=== PATIENT | male | born 1935 | race American Indian/Alaskan Native ===

== ENCOUNTER 2018-06-14 12:12 | Emergency (ER) | payer MEDICARE ==
--- NOTE | 2018-06-14 13:25 | Emergency Department Report ---
ED Psych HPI - General Chief Complaint: Psych Stated Complaint: ALZHEIMERS Time Seen by Provider: 06/14/18 13:24 Source: EMS Mode of arrival: Stretcher - History of Present Illness Initial Comments: Patient is an 82-year-old male past medical history of Alzheimer's disease who presents with aggressive behavior. History is limited due to patient not wanting to communicate and dementia. Per EMS patient be his at home. Patient keeps on saying people or screaming at him and he doesn't like that. - Related Data Allergies Allergy/AdvReac Type Severity Reaction Status Date / Time No Known Allergies Allergy Unverified 06/14/18 12:48 ED Review of Systems ROS: Stated complaint: ALZHEIMERS Other details as noted in HPI Comment: Unobtainable due to pts medical conditions (dementia) ED Past Medical Hx - Past Medical History Additional medical history: alzhiemer's - Social History Smoking Status: Unknown if ever smoked ED Physical Exam - General Limitations: Altered Mental Status General appearance: alert - Head Head exam: Present: atraumatic, normocephalic - Eye Eye exam: Present: normal appearance - ENT ENT exam: Present: mucous membranes moist - Neck Neck exam: Present: normal inspection - Respiratory Respiratory exam: Present: normal lung sounds bilaterally. Absent: respiratory distress - Cardiovascular Cardiovascular Exam: Present: regular rate, normal rhythm. Absent: systolic murmur, diastolic murmur, rubs, gallop - GI/Abdominal GI/Abdominal exam: Present: soft, normal bowel sounds - Rectal Rectal exam: Present: deferred - Extremities Exam Extremities exam: Present: normal inspection - Back Exam Back exam: Present: normal inspection - Neurological Exam Neurological exam: Present: altered - Psychiatric Psychiatric exam: Present: agitated, homicidal ideation - Skin Skin exam: Present: warm, dry, intact, normal color. Absent: rash ED Course Vital Signs 06/14/18 14:34 Respiratory 16 Rate ED Medical Decision Making - Lab Data Result diagrams: 06/14/18 13:52 06/14/18 13:52 Lab Results 06/14/18 06/14/18 06/14/18 Range/Units 13:52 13:52 13:52 WBC 5.3 (4.5-11.0) K/mm3 RBC 4.32 (3.65-5.03) M/mm3 Hgb 13.7 (11.8-15.2) gm/dl Hct 41.7 (35.5-45.6) % MCV 97 H (84-94) fl MCH 32 (28-32) pg MCHC 33 (32-34) % RDW 14.5 (13.2-15.2) % Plt Count 290 (140-440) K/mm3 Lymph % (Auto) 31.8 (13.4-35.0) % [place] % (Auto) 13.0 H (0.0-7.3) % Eos % (Auto) 1.5 (0.0-4.3) % Baso % (Auto) 0.7 (0.0-1.8) % Lymph # 1.7 (1.2-5.4) K/mm3 [place] # 0.7 (0.0-0.8) K/mm3 Eos # 0.1 (0.0-0.4) K/mm3 Baso # 0.0 (0.0-0.1) K/mm3 Seg Neutrophils % 53.0 (40.0-70.0) % Seg Neutrophils # 2.8 (1.8-7.7) K/mm3 Sodium 138 (137-145) mmol/L Potassium 3.9 (3.6-5.0) mmol/L Chloride 97.2 L (98-107) mmol/L Carbon Dioxide 27 (22-30) mmol/L Anion Gap 18 mmol/L BUN 8 L (9-20) mg/dL Creatinine 0.8 (0.8-1.5) mg/dL Estimated GFR > 60 ml/min BUN/Creatinine Ratio 10 % Glucose 106 H (75-100) mg/dL Calcium 10.5 H (8.4-10.2) mg/dL Salicylates < 0.3 L (2.8-20.0) mg/dL Acetaminophen (10.0-30.0) ug/mL Plasma/Serum Alcohol (0-0.07) % 06/14/18 06/14/18 Range/Units 13:52 13:52 WBC (4.5-11.0) K/mm3 RBC (3.65-5.03) M/mm3 Hgb (11.8-15.2) gm/dl Hct (35.5-45.6) % MCV (84-94) fl MCH (28-32) pg MCHC (32-34) % RDW (13.2-15.2) % Plt Count (140-440) K/mm3 Lymph % (Auto) (13.4-35.0) % [place] % (Auto) (0.0-7.3) % Eos % (Auto) (0.0-4.3) % Baso % (Auto) (0.0-1.8) % Lymph # (1.2-5.4) K/mm3 [place] # (0.0-0.8) K/mm3 Eos # (0.0-0.4) K/mm3 Baso # (0.0-0.1) K/mm3 Seg Neutrophils % (40.0-70.0) % Seg Neutrophils # (1.8-7.7) K/mm3 Sodium (137-145) mmol/L Potassium (3.6-5.0) mmol/L Chloride (98-107) mmol/L Carbon Dioxide (22-30) mmol/L Anion Gap mmol/L BUN (9-20) mg/dL Creatinine (0.8-1.5) mg/dL Estimated GFR ml/min BUN/Creatinine Ratio % Glucose (75-100) mg/dL Calcium (8.4-10.2) mg/dL Salicylates (2.8-20.0) mg/dL Acetaminophen < 5.0 L (10.0-30.0) ug/mL Plasma/Serum Alcohol < 0.01 (0-0.07) % - Medical Decision Making Cdx: Aggressive behavior secondary to dementia ddx: End stage Alzheimer's disease, Vascular dementia I will get cbc, bmp, ekg, urinalysis, urine drug screen and I will have psych come see the patient. I will have patient on 1013 due to severe dementia and aggressive behavior. Patient has been medically cleared. Critical care attestation.: If time is entered above; I have spent that time in minutes in the direct care of this critically ill patient, excluding procedure time. ED Disposition Clinical Impression: Aggressive behavior Alzheimer disease Qualifiers: Alzheimer's disease onset: unspecified onset Dementia behavioral disturbance: with behavioral disturbance Qualified Code(s): G30.9 - Alzheimer's disease, unspecified; F02.81 - Dementia in other diseases classified elsewhere with behavioral disturbance Disposition: DC/TX-65 PSY HOSP/PSY UNIT Is pt being admited?: No Does the pt Need Aspirin: No Condition: Stable Referrals: PRIMARY CARE, [Primary Care Provider] - 3-5 Days
[2018-06-14 14:11] LABS: Basophils % (Auto) 0.7 % (0.0-1.8); Eosinophils # (Auto) 0.1 K/mm3 (0.0-0.4); Eosinophils % (Auto) 1.5 % (0.0-4.3); Hematocrit 41.7 % (35.5-45.6); Hemoglobin 13.7 gm/dl (11.8-15.2); Lymphocytes # (Auto) 1.7 K/mm3 (1.2-5.4); Lymphocytes % (Auto) 31.8 % (13.4-35.0); Mean Corpuscular HGB Conc 33 % (32-34); Mean Corpuscular Hemoglobin 32 pg (28-32); Mean Corpuscular Volume 97 fl (84-94); Monocytes # (Auto) 0.7 K/mm3 (0.0-0.8); Platelet Count 290 K/mm3 (140-440); Red Blood Count 4.32 M/mm3 (3.65-5.03); Red Cell Distribution Width 14.5 % (13.2-15.2)
[2018-06-14 14:22] LABS: BUN/Creatinine Ratio 10; Blood Urea Nitrogen 8 mg/dL (9-20); Calcium 10.5 mg/dL (8.4-10.2); Hemolysis Index 7
[2018-06-14 19:10] LABS: Bacteria,Urine 1+ /HPF (Negative); Bilirubin,Urine NEG (Negative); Blood,Urine SM (Negative); Color,Urine Yellow (Yellow); Mucus,Urine 3+ /HPF; Protein,Urine <15 mg/dL mg/dL (Negative); Urobilinogen,Urine < 2.0 mg/dL (<2.0)
[2018-06-14 19:14] LABS: Amphetamine Screen,Urine PRESUMPTIVE NEGATIVE; Benzodiazepines Screen,Urine PRESUMPTIVE NEGATIVE; Cannabinoid Screen,Urine PRESUMPTIVE NEGATIVE; Cocaine Screen,Urine PRESUMPTIVE NEGATIVE; Methadone Screen,Urine PRESUMPTIVE NEGATIVE; Opiate Screen,Urine PRESUMPTIVE NEGATIVE
[2018-06-15] MEDS ORDERED: ATIVAN ONE ×2 (06:51→21:55)
[2018-06-15] MEDS ORDERED: ATIVAN IM ONE ×2 (07:02→22:00)
--- NOTE | 2018-06-15 12:21 | Consultation ---
History of Present Illness - Reason for Consult Consult date: 06/15/18 Reason for consult: Mental Health Evaluation Requesting physician: RHETT CHILDS - Chief Complaint Chief complaint: 'The patient is sedated" - History of Present Psychiatric Illness 82-year-old male past medical history of demential who presents to the ER with aggressive behavior. Today the patient is sedated per Ativan administration. Per the notes, the patient have been agitated since his arrival to the ER. Medications and Allergies Allergies Allergy/AdvReac Type Severity Reaction Status Date / Time No Known Allergies Allergy Unverified 06/14/18 12:48 Home Medications Medication Instructions Recorded Confirmed Last Taken Type Unobtainable 06/14/18 06/14/18 Unknown History Past psychiatric history - Past Medical History Past Medical History: other (Unable to obtain) Past Surgical History: Other (Unable to obtain) - past Psychiatric treatment and history psychiatric treatment history: Per the record, the patient has a hx of dementia. Unable to obtain a fam psy hx. - Social History Social history: lives with family Mental Status Exam - Vital signs Last Vital Signs Temp 97.6 F 06/15/18 07:30 Pulse 67 06/15/18 12:16 Resp 18 06/15/18 12:16 BP 154/80 06/15/18 12:16 Pulse Ox 95 06/15/18 12:16 - Exam Narrative exam: Unable to complete a MSE because of the patient's condition. Results Result Diagrams: 06/14/18 13:52 06/14/18 13:52 Abnormal lab results 06/14/18 06/14/18 06/14/18 Range/Units 13:52 13:52 13:52 MCV 97 H (84-94) fl [place] % (Auto) 13.0 H (0.0-7.3) % Chloride 97.2 L (98-107) mmol/L BUN 8 L (9-20) mg/dL Glucose 106 H (75-100) mg/dL Calcium 10.5 H (8.4-10.2) mg/dL Salicylates < 0.3 L (2.8-20.0) mg/dL Acetaminophen (10.0-30.0) ug/mL 06/14/18 Range/Units 13:52 MCV (84-94) fl [place] % (Auto) (0.0-7.3) % Chloride (98-107) mmol/L BUN (9-20) mg/dL Glucose (75-100) mg/dL Calcium (8.4-10.2) mg/dL Salicylates (2.8-20.0) mg/dL Acetaminophen < 5.0 L (10.0-30.0) ug/mL All other labs normal. Assessment and Plan Assessment and plan: Impression: Hx of Dementia per the record. Today the patient is sedated per Ativan administration. Recommendation/Plan: Continue 1013, gather collateral information, and reassess the patient is 24 hours. Start Haldol 2 mg IM Q6hrs PRN for acute agitation. Recommend the following precautions below: 1. Frequently reorient patient and involve him/her in their care (simple explanations of procedures, tests, medications). 2. Lights on and shades open during daytime hours. 3. Write date and goals of care in a visible place. 4. Try to avoid unnecessary interruptions to sleep during nighttime hours. 5. Obtain glasses, hearing aids from home if patient uses these at baseline. 6. Avoid medications that may exacerbate delirium (especially narcotics, benzodiazepines, barbiturates, ambien, lunesta, and medications with excessive anticholinergic properties).
[2018-06-15] MEDS ORDERED: HALDOL IM PRN (12:25)
--- NOTE | 2018-06-16 14:01 | Progress Note ---
Subjective - Reason for Consult Consult date: 06/16/18 Reason for consult: Psychiatry Follow-up - Chief Complaint Chief complaint: "The patient is confused" 82-year-old male past medical history of dementia who presents to the ER with aggressive behavior. Today the patient is calm, but confused during the assessment. He was observed eating some of his breakfast safely with assistance. Per collateral information from the patient's Rocio Martino at [phone] stated that the patient was aggressive with her, so she had to call 911. She was asked about his medications, she stated, "I'm not sure." Per the staff, the patient had no behavioral disturbance overnight. Mental Status Exam - Vital signs Last Vital Signs Temp 97 F L 06/16/18 01:00 Pulse 99 H 06/16/18 01:00 Resp 20 06/16/18 01:00 BP 158/89 06/16/18 01:00 Pulse Ox 96 06/16/18 01:00 - Exam Narrative exam: Unable to complete a MSE because of the patient's condition. Assessment and Plan Impression: Hx of Dementia per the record. Today the patient is calm, but confused during the assessment. Recommendation/Plan: Continue 1013 with placement to inpatient psy services. Continue Haldol 2 mg IM Q6hrs PRN for acute agitation. Recommend the following precautions below: 1. Frequently reorient patient and involve him/her in their care (simple explanations of procedures, tests, medications). 2. Lights on and shades open during daytime hours. 3. Write date and goals of care in a visible place. 4. Try to avoid unnecessary interruptions to sleep during nighttime hours. 5. Obtain glasses, hearing aids from home if patient uses these at baseline. 6. Avoid medications that may exacerbate delirium (especially narcotics, benzodiazepines, barbiturates, ambien, lunesta, and medications with excessive anticholinergic properties).
--- NOTE | 2018-06-17 14:37 | Progress Note ---
Subjective - Reason for Consult Consult date: 06/17/18 Reason for consult: Psychiatric Follow-up Evaluation - Chief Complaint Chief complaint: Patient is confused. Speech incoherent. Patient is an 82-year-old male with a past medical history of dementia. He presents to the ER with aggressive behavior. Today the patient is anxious and confused during the assessment. He is seen laying in the bed while on a radiation monitor. Per RN patient has been fidgety without any agitation/ irritation. Per staff is eating. He needs assistance with ADL. The patient had no behavioral disturbance overnight. Mental Status Exam - Vital signs Last Vital Signs Temp 97.6 F 06/16/18 19:30 Pulse 113 H 06/16/18 19:30 Resp 16 06/16/18 19:30 BP 132/81 06/16/18 19:30 Pulse Ox 98 06/16/18 19:30 - Exam Narrative exam: Unable to complete a MSE because of the patient's condition. Assessment and Plan Impression: Hx of Dementia per the record. Today the patient is anxious and confused during the assessment. Per RN patient has been fidgety but without irritation/agitation. No behavioral disturbances. Patient hasn't received any PRN Haldol. Recommendation/Plan: Continue 1013 with placement to inpatient psychiatric services. Continue Haldol 2 mg IM Q6hrs PRN for acute agitation. Recommend the following precautions below: 1. Frequently reorient patient and involve him/her in their care (simple explanations of procedures, tests, medications). 2. Lights on and shades open during daytime hours. 3. Write date and goals of care in a visible place. 4. Try to avoid unnecessary interruptions to sleep during nighttime hours. 5. Obtain glasses, hearing aids from home if patient uses these at baseline. 6. Avoid medications that may exacerbate delirium (especially narcotics, benzodiazepines, barbiturates, ambien, lunesta, and medications with excessive anticholinergic properties).
--- NOTE | 2018-06-18 13:44 | Progress Note ---
Subjective - Reason for Consult Consult date: 06/18/18 Reason for consult: Psychiatry Follow-up - Chief Complaint Chief complaint: "Patient is confused" Patient is an 82-year-old male with a past medical history of dementia. The patient presents to the ER for aggressive behavior. Today the patient is calm, but confused during the assessment. Per the staff, the patient ate his breakfast. He needs assistance with ADL. The patient had no behavioral disturbance overnight. Mental Status Exam - Vital signs Last Vital Signs Temp 97.9 F 06/18/18 10:00 Pulse 95 H 06/18/18 10:00 Resp 20 06/18/18 10:00 BP 148/75 06/18/18 10:00 Pulse Ox 97 06/18/18 10:00 - Exam Narrative exam: Unable to complete a MSE because of the patient's condition. Assessment and Plan Impression: Hx of Dementia per the record. Today the patient is calm, but confused during the assessment. Recommendation/Plan: Continue 1013. The patient is pending placement with several mental health facilities. Continue Haldol 2 mg IM Q6hrs PRN for acute agitation. Recommend the following precautions below: 1. Frequently reorient patient and involve him/her in their care (simple explanations of procedures, tests, medications). 2. Lights on and shades open during daytime hours. 3. Write date and goals of care in a visible place. 4. Try to avoid unnecessary interruptions to sleep during nighttime hours. 5. Obtain glasses, hearing aids from home if patient uses these at baseline. 6. Avoid medications that may exacerbate delirium (especially narcotics, benzodiazepines, barbiturates, ambien, lunesta, and medications with excessive anticholinergic properties).
[2018-06-18 20:59] VITALS: BP 160/73
--- NOTE | 2018-06-19 11:47 | Progress Note ---
Subjective - Reason for Consult Consult date: 06/19/18 Reason for consult: Psychiatry Follow-up - Chief Complaint Chief complaint: "Patient is confused" Patient is an 82-year-old male with a past medical history of dementia. The patient presents to the ER for aggressive behavior. Today the patient is calm, but still confused during the assessment. Per the staff, no behavioral disturbance overnight. Also, the patient eats 100% of his meal with assistance. Mental Status Exam - Vital signs Last Vital Signs Temp 97.5 F L 06/18/18 17:38 Pulse 73 06/18/18 20:59 Resp 17 06/18/18 20:59 BP 160/73 06/18/18 20:59 Pulse Ox 96 06/18/18 20:59 - Exam Narrative exam: Unable to complete a MSE because of the patient's condition. Assessment and Plan Impression: Hx of Dementia per the record. Today the patient is calm, but still confused during the assessment. The patient isn't a threat to others. Recommendation/Plan: Rescind 1013. The patient will be placed to a SNF per Case Mgmt once discharged.
--- NOTE | 2018-06-19 12:47 | Emergency Department Report ---
Blank Doc - Documentation Documentation: Mr. Martino is being transferred at this moment to [facility] skilled nursing. he needs 24 hour care due to dementia. I have spoken with the team of providers involved in his care including psychiatry, case management, nursing leadership and bedside nurses. I highly appreciate the amazing compassionate care provided to this gentleman.
== END 2018-06-19 13:44 | disposition other institution (70) ==
LOC: ED 12:12 → EEVIPCON 12:12 → ED 06-19 13:44
DX: F02.81 Dementia in other diseases classified elsewhere, unspecified severity, with behavioral disturbance (principal); G30.9 Alzheimer's disease, unspecified
CPT/HCPCS: 36415; 80048; 80307; 81001; 85025; 96372; 99284; G0480; J1630; J2060; 80320

== ENCOUNTER 2018-06-30 13:06 | Emergency (ER) | payer MEDICARE | END 2018-06-30 16:35 | LOC: ED 13:06 | DX: I46.9 Cardiac arrest, cause unspecified (principal) ==